=== PATIENT | male | born 1990 | race Caucasian/White ===

== ENCOUNTER 2021-07-02 20:18 | Inpatient (IN) ==
[2021-07-02 20:54] LABS: Basophils # 0.1 K/mcL (0.0-0.2); Basophils % 0.9 %; Eosinophils # 0.6 K/mcL (0.0-0.6); Eosinophils % 6.9 %; Hematocrit 44.6 % (37.5-50.1); Immature Granulocytes % 0.3 % (0-4); Lymphocytes # 2.6 K/mcL (0.6-4.6); Lymphocytes % 29.4 %; Mean Corpuscular HGB Conc 33.6 g/dL (31.6-35.5); Mean Corpuscular Hemoglobin 30.6 pg (28.0-33.3); Mean Platelet Volume 9.1 fL (9.4-12.4); Monocytes # 0.8 K/mcL (0.0-1.3); Neutrophils # 4.8 K/mcL (1.6-8.9); Platelet Count 250 K/mcL (140-400); Red Cell Distribution Width 12.1 % (11.5-14.5); Segmented Neutrophils % 53.5 %
[2021-07-02 21:09] LABS: Acetaminophen < 10 mcg/mL (10-20); BUN/Creatinine Ratio 8 (6-26); Blood Urea Nitrogen 11 mg/dL (6-20); Calcium 9.1 mg/dL (8.6-10.3); Carbon Dioxide 27 mEq/L (23-29); Chloride 102 mEq/L (98-107); Ethanol < 10 mg/dL (Less than 10); Glucose 91 mg/dL (70-105); Osmolality,Calculated 281 (280-300); Potassium 3.7 mEq/L (3.5-5.1); Salicylate < 2.5 mg/dL (15.0-30.0); Sodium 136 mEq/L (136-145); eGFR For African Americans > 60 (> 60); eGFR For Non-African Americans 59 (> 60)
[2021-07-02 21:16] LABS: Bilirubin,Urine Negative (Negative); Blood,Urine Negative (Negative); Clarity,Urine Clear (Clear); Color,Urine Colorless (Yellow); Glucose,Urine (UA) Normal (Normal); Ketones,Urine Negative (Negative); Leukocyte Esterase,Urine Negative (Negative); Nitrite,Urine Negative (Negative); PH,Urine 6.5 pH Units (5.0-8.0); Protein,Urine Negative (Neg-Trace); Urobilinogen,Urine Normal (Normal)
[2021-07-02 21:25] LABS: Amphetamine Screen,Urine Negative ng/mL (Cutoff=1000); Barbiturate Screen,Urine Negative ng/mL (Cutoff=200); Benzodiazepines Screen,Urine Negative ng/mL (Cutoff=200); Cannabinoid Screen,Urine Negative ng/mL (Cutoff = 50); Cocaine Screen,Urine Negative ng/mL (Cutoff= 300); Opiate Screen,Urine Negative ng/mL (Cutoff=300); Phencyclidine Screen,Urine Negative ng/mL (Cutoff=25)
[2021-07-03 02:10] LABS: Influenza A PCR Negative (Negative); Influenza B PCR Negative (Negative); Resp. Syncytial Virus PCR Negative (Negative)
[2021-07-03 02:12] LABS: SARS-CoV-2 by PCR (In House) Negative (Negative)
[2021-07-03] MEDS ORDERED: Ibuprofen 400 MG TABLET PO PRN (02:42)
[2021-07-03] MEDS ORDERED: Haloperidol Lactate 5 MG/ML VIAL IM PRN (02:42)
[2021-07-03] MEDS ORDERED: *HR* LORazepam 2 MG/ML VIAL IM PRN (02:42)
[2021-07-03] MEDS ORDERED: traZODone 50 MG TABLET PO PRN (02:42)
[2021-07-03] MEDS ORDERED: hydrOXYzine pamoate 25 MG CAPSULE PO PRN (02:42)
[2021-07-03] MEDS ORDERED: *HR* LORazepam 1 MG TABLET PO PRN (02:42)
[2021-07-03] MEDS ORDERED: haloperidoL 5 MG TABLET PO PRN (02:42)
[2021-07-03] MEDS ORDERED: Mag Hydrox/Al Hydrox/Simeth 30 ML UDC PO PRN (09:04)
[2021-07-03] MEDS ORDERED: MOM Conc 10 ML UD.LIQ PO PRN (09:04)
[2021-07-03] MEDS: Nicotine 21 MG PATCH.TD24 TD SCH (09:34)
[2021-07-04] MEDS: Nicotine 21 MG PATCH.TD24 TD SCH (08:58)
[2021-07-05] MEDS: Nicotine 21 MG PATCH.TD24 TD SCH (08:13)
[2021-07-05 09:05] VITALS: BP 124/76; PULSE 67; TEMP 97.9; O2SAT 97
== END 2021-07-05 14:40 | disposition home or self-care (01) | DRG 754 ==
LOC: EMEROOARM 20:18 → 1ANU 07-03 02:22
PROVIDERS: ADMIT Psychiatry & Neurology Psychiatry; ATTEND Psychiatry & Neurology Psychiatry